=== PATIENT | female | born 1955 | race Caucasian/White ===

== ENCOUNTER 2016-04-29 15:59 | Emergency (ER) | payer MEDICARE, MEDICAID ==
[2016-04-29] MEDS ORDERED: KETOROLAC 60 MG/2 ML VIAL IM ONE (17:22)
[2016-04-29] MEDS ORDERED: TRAMADOL 50 MG TAB ONE (18:16)
== END 2016-04-29 18:55 | disposition home or self-care (01) ==
LOC: ER 15:59
CPT/HCPCS: 72050; 72072; 72100